=== PATIENT | male | born 1955 | race African-American/Black ===

== ENCOUNTER 2021-11-20 19:36 | Inpatient (IN) | payer MEDICARE, OTHER ==
[2021-11-20 20:55] LABS: #Eosinphils 0.2 10x3/uL (0.0-0.5); #Monocytes 0.5 10x3/uL (0.0-1.1); #Neutrophils 3.7 10x3/uL (1.5-8.4); %Basophils 0.4 % (0.0-2.0); %Eosinophils 2.9 % (0.0-6.0); %Monocytes 8.8 % (0.0-10.0); %Neutrophils 67.3 % (40.0-75.0); Hemoglobin 7.5 g/dL (13.5-17.5); Mean Corpuscular HGB CONC 33.9 g/dL (32.0-36.0); Mean Corpuscular Hemoglobin 32.9 pg (27.0-33.0); Mean Corpuscular Volume 96.9 fl (81.2-95.1); Platelet Count 102 10x3/uL (150-450); RBC Distribution Width 15.3 % (11.5-14.5); Red Blood Cell (RBC) Count 2.28 10x6/uL (4.32-5.72); White Blood Cell (WBC) Count 5.5 10x3/uL (3.5-10.5)
[2021-11-20 21:04] LABS: ALT (SGPT) 288 U/L (8-55); AST (SGOT) 44 U/L (5-34); Albumin 3.4 g/dL (3.4-4.8); Alkaline Phosphatase 61 U/L (40-110); Anion Gap 17 mmol/L (10-20); BUN (Urea Nitrogen) 112 mg/dL (8.4-25.7); Bilirubin, Total 0.5 mg/dL (0.2-1.2); Calc. Creatinine Clearance 0 mL/min (70-130); Calcium 9.5 mg/dL (7.8-10.44); Carbon Dioxide 21 mmol/L (23-31); Chloride 103 mmol/L (98-107); Globulin 2.4 g/dL (2.4-3.5); Glucose 153 mg/dL (80-115); Potassium 5.1 mmol/L (3.5-5.1); Protein, Total 5.8 g/dL (5.8-8.1); Sodium 136 mmol/L (136-145)
[2021-11-21 04:42] LABS: #Eosinphils 0.2 10x3/uL (0.0-0.5); #Monocytes 0.5 10x3/uL (0.0-1.1); %Basophils 0.3 % (0.0-2.0); %Eosinophils 3.1 % (0.0-6.0); %Lymphocytes 17.6 % (18.0-47.0); %Monocytes 8.4 % (0.0-10.0); %Neutrophils 70.3 % (40.0-75.0); Hemoglobin 7.3 g/dL (13.5-17.5); Mean Corpuscular HGB CONC 33.2 g/dL (32.0-36.0); Mean Corpuscular Hemoglobin 32.3 pg (27.0-33.0); Mean Corpuscular Volume 97.3 fl (81.2-95.1); RBC Distribution Width 14.9 % (11.5-14.5); Red Blood Cell (RBC) Count 2.26 10x6/uL (4.32-5.72); White Blood Cell (WBC) Count 5.7 10x3/uL (3.5-10.5)
[2021-11-21 04:43] LABS: Platelet Count 94 10x3/uL (150-450)
[2021-11-21 04:59] LABS: Anion Gap 17 mmol/L (10-20); BUN (Urea Nitrogen) 109 mg/dL (8.4-25.7); Calc. Creatinine Clearance 0 mL/min (70-130); Calcium 9.2 mg/dL (7.8-10.44); Carbon Dioxide 20 mmol/L (23-31); Chloride 107 mmol/L (98-107); Glucose 139 mg/dL (80-115); Magnesium 2.2 mg/dL (1.6-2.6); Phosphorus 3.4 mg/dL (2.3-4.7); Potassium 4.9 mmol/L (3.5-5.1); Sodium 139 mmol/L (136-145)
[2021-11-21] MEDS: Sodium Chloride 0.9% 1,000 ML IV SCH ×3 (07:49→13:16)
[2021-11-21] MEDS ORDERED: hydrALAZINE 25 MG TAB ONE (08:04)
[2021-11-21] MEDS ORDERED: Amlodipine 5 MG TAB ONE (08:04)
[2021-11-21] MEDS ORDERED: Heparin 5,000 UNITS/ML VIAL ONE (08:04)
[2021-11-21] MEDS: Heparin 5,000 UNITS/ML VIAL SC SCH ×3 (08:20→20:37)
[2021-11-21] MEDS: Citalopram 20 MG TAB PO SCH (08:20)
[2021-11-21] MEDS: Amlodipine 10 MG TAB PO SCH (08:20)
[2021-11-21] MEDS: Ferrous Sulfate 325 MG TAB PO SCH (08:20)
[2021-11-21] MEDS: Polyethylene Glycol 3350 17 GM Packet PO SCH (08:21)
[2021-11-21] MEDS: hydrALAZINE 25 MG TAB PO SCH ×3 (08:21→20:36)
[2021-11-21] MEDS: Multivit, Therapeutic 1 TAB PO SCH (08:21)
[2021-11-21] MEDS: Sodium Bicarbonate Tab 325 MG TAB PO SCH ×3 (08:22→20:36)
[2021-11-21] MEDS ORDERED: NIFEdipine XL 60 MG TAB PO SCH (09:00)
[2021-11-21] MEDS ORDERED: Atenolol 50 MG TAB PO SCH (09:00)
[2021-11-21] MEDS: Valproate Sodium 250 mg/5 ml UD Cup PO SCH ×2 (13:16→20:37)
[2021-11-22 00:17] LABS: SARS-CoV-2 PCR by NAA Not Detected (NotDetected)
[2021-11-22] MEDS: Sodium Chloride 0.9% 1,000 ML IV SCH ×2 (01:16→13:30)
[2021-11-22] MEDS ORDERED: Atenolol 50 MG TAB PO SCH (05:45)
[2021-11-22] MEDS ORDERED: hydrALAZINE 25 MG TAB PO SCH (05:45)
[2021-11-22] MEDS ORDERED: NIFEdipine XL 60 MG TAB PO SCH (05:45)
[2021-11-22] MEDS: Sodium Bicarbonate Tab 325 MG TAB PO SCH ×3 (09:07→21:27)
[2021-11-22] MEDS: Citalopram 20 MG TAB PO SCH (09:07)
[2021-11-22] MEDS: Amlodipine 10 MG TAB PO SCH (09:10)
[2021-11-22] MEDS: Multivit, Therapeutic 1 TAB PO SCH (09:10)
[2021-11-22] MEDS: Ferrous Sulfate 325 MG TAB PO SCH (09:11)
[2021-11-22] MEDS: Valproate Sodium 250 mg/5 ml UD Cup PO SCH ×2 (09:12→21:26)
[2021-11-22] MEDS: Polyethylene Glycol 3350 17 GM Packet PO SCH ×2 (09:12→13:30)
[2021-11-22] MEDS: Heparin 5,000 UNITS/ML VIAL SC SCH ×3 (09:12→21:27)
[2021-11-22 10:27] LABS: Anion Gap 15 mmol/L (10-20); BUN (Urea Nitrogen) 86 mg/dL (8.4-25.7); Calc. Creatinine Clearance 16 mL/min (70-130); Calcium 9.4 mg/dL (7.8-10.44); Carbon Dioxide 19 mmol/L (23-31); Chloride 110 mmol/L (98-107); Glucose 105 mg/dL (80-115); Potassium 4.6 mmol/L (3.5-5.1); Sodium 139 mmol/L (136-145)
[2021-11-22 10:53] LABS: #Monocytes 0.2 10x3/uL (0.0-1.1); %Basophils 0.2 % (0.0-2.0); %Lymphocytes 18.7 % (18.0-47.0); %Monocytes 4.7 % (0.0-10.0); %Neutrophils 74.9 % (40.0-75.0); Hemoglobin 7.8 g/dL (13.5-17.5); Mean Corpuscular HGB CONC 32.5 g/dL (32.0-36.0); Mean Corpuscular Hemoglobin 31.5 pg (27.0-33.0); Mean Corpuscular Volume 96.8 fl (81.2-95.1); Mean Platelet Volume 10.9 fl (7.4-10.4); Platelet Count 95 10x3/uL (150-450); RBC Distribution Width 14.9 % (11.5-14.5); Red Blood Cell (RBC) Count 2.48 10x6/uL (4.32-5.72); White Blood Cell (WBC) Count 4.1 10x3/uL (3.5-10.5)
[2021-11-22] MEDS: hydrALAZINE 25 MG TAB PO SCH ×2 (15:15→21:27)
[2021-11-22] MEDS ORDERED: Valproate Sodium 250 mg/5 ml UD Cup ONE (21:22)
[2021-11-23] MEDS ORDERED: hydrALAZINE 20 MG/ML VIAL SLOW IVP SCH (01:45)
[2021-11-23] MEDS: Sodium Chloride 0.9% 1,000 ML IV SCH ×2 (01:50→16:59)
[2021-11-23] MEDS ORDERED: cloNIDine 0.3mg/24 Hour PATCH TD SCH (02:00)
[2021-11-23 05:20] LABS: Anion Gap 15 mmol/L (10-20); BUN (Urea Nitrogen) 77 mg/dL (8.4-25.7); Calc. Creatinine Clearance 17 mL/min (70-130); Calcium 9.4 mg/dL (7.8-10.44); Carbon Dioxide 20 mmol/L (23-31); Chloride 112 mmol/L (98-107); Glucose 100 mg/dL (80-115); Potassium 5.1 mmol/L (3.5-5.1); Sodium 142 mmol/L (136-145)
[2021-11-23] MEDS: Amlodipine 10 MG TAB PO SCH (05:22)
[2021-11-23 05:24] LABS: #Eosinphils 0.2 10x3/uL (0.0-0.5); #Monocytes 0.4 10x3/uL (0.0-1.1); #Neutrophils 3.4 10x3/uL (1.5-8.4); %Basophils 0.4 % (0.0-2.0); %Lymphocytes 23.2 % (18.0-47.0); %Monocytes 8.2 % (0.0-10.0); %Neutrophils 64.8 % (40.0-75.0); Hemoglobin 7.9 g/dL (13.5-17.5); Mean Corpuscular HGB CONC 31.9 g/dL (32.0-36.0); Mean Corpuscular Hemoglobin 31.6 pg (27.0-33.0); Mean Corpuscular Volume 99.2 fl (81.2-95.1); Mean Platelet Volume 10.8 fl (7.4-10.4); Platelet Count 113 10x3/uL (150-450); RBC Distribution Width 14.9 % (11.5-14.5); White Blood Cell (WBC) Count 5.3 10x3/uL (3.5-10.5)
[2021-11-23] MEDS ORDERED: Atenolol 50 MG TAB PO SCH (09:00)
[2021-11-23] MEDS ORDERED: NIFEdipine XL 60 MG TAB PO SCH (09:00)
[2021-11-23] MEDS: hydrALAZINE 25 MG TAB PO SCH ×2 (10:24→16:55)
[2021-11-23] MEDS: Valproate Sodium 250 mg/5 ml UD Cup PO SCH (10:32)
[2021-11-23] MEDS: Ferrous Sulfate 325 MG TAB PO SCH (10:33)
[2021-11-23] MEDS: Heparin 5,000 UNITS/ML VIAL SC SCH ×2 (10:40→16:56)
[2021-11-23] MEDS: Multivit, Therapeutic 1 TAB PO SCH (10:40)
[2021-11-23] MEDS: Sodium Bicarbonate Tab 325 MG TAB PO SCH ×2 (10:40→16:55)
[2021-11-23] MEDS: Polyethylene Glycol 3350 17 GM Packet PO SCH (10:48)
[2021-11-23] MEDS: Citalopram 20 MG TAB PO SCH (10:48)
[2021-11-23 15:58] VITALS: BP 143/80; TEMP 99
[2021-11-24] MEDS ORDERED: cloNIDine 0.3mg/24 Hour PATCH TD SCH (09:00)
== END 2021-11-23 18:30 | DRG 683 ==
LOC: CSHERS 19:36 → INTOOBSV 22:52 → CSHERHOLD 22:52 → UNDOADMIN 11-21 03:50 → CSHERHOLD 11-21 03:50 → CSHTELE 11-21 11:42 → OBSVTOIN 11-22 08:59
PROVIDERS: ADMIT Family Medicine; ATTEND Physician Assistant
DX: N17.9 Acute kidney failure, unspecified (principal); E87.2 Acidosis; I12.0 Hypertensive chronic kidney disease with stage 5 chronic kidney disease or end stage renal disease; N18.5 Chronic kidney disease, stage 5; F01.50 Vascular dementia, unspecified severity, without behavioral disturbance, psychotic disturbance, mood disturbance, and anxiety; G40.909 Epilepsy, unspecified, not intractable, without status epilepticus; E11.22 Type 2 diabetes mellitus with diabetic chronic kidney disease; E78.5 Hyperlipidemia, unspecified; N40.0 Benign prostatic hyperplasia without lower urinary tract symptoms; F31.9 Bipolar disorder, unspecified; D63.1 Anemia in chronic kidney disease; E87.5 Hyperkalemia; Z20.822 Contact with and (suspected) exposure to COVID-19; Z88.8 Allergy status to other drugs, medicaments and biological substances; Z86.73 Personal history of transient ischemic attack (TIA), and cerebral infarction without residual deficits; Z79.899 Other long term (current) drug therapy
CPT/HCPCS: 36415; 76770; 80048; 80053; 83735; 84100; 85025; 86850; 86900; 86901; J0360; J1644; J7050; U0003; U0005

== ENCOUNTER 2022-03-24 23:05 | Emergency (ER) | payer MEDICARE, OTHER ==
[2022-03-24 23:37] LABS: #Eosinphils 0.1 10x3/uL (0.0-0.5); #Monocytes 0.3 10x3/uL (0.0-1.1); #Neutrophils 2.6 10x3/uL (1.5-8.4); %Basophils 0.5 % (0.0-2.0); %Eosinophils 2.4 % (0.0-6.0); %Lymphocytes 20.4 % (18.0-47.0); %Monocytes 8.4 % (0.0-10.0); Hemoglobin 9.2 g/dL (13.5-17.5); Mean Corpuscular HGB CONC 30.7 g/dL (32.0-36.0); Mean Corpuscular Hemoglobin 29.1 pg (27.0-33.0); Mean Corpuscular Volume 94.9 fl (81.2-95.1); Mean Platelet Volume 12.8 fl (7.4-10.4); Platelet Count 139 10x3/uL (150-450); RBC Distribution Width 16.2 % (11.5-14.5); Red Blood Cell (RBC) Count 3.16 10x6/uL (4.32-5.72); White Blood Cell (WBC) Count 3.8 10x3/uL (3.5-10.5)
[2022-03-24 23:56] LABS: ALT (SGPT) 12 U/L (8-55); AST (SGOT) 18 U/L (5-34); Alkaline Phosphatase 64 U/L (40-110); Anion Gap 17 mmol/L (10-20); BUN (Urea Nitrogen) 96 mg/dL (8.4-25.7); CK (CPK) 57 U/L (30-200); Calc. Creatinine Clearance 0 mL/min (70-130); Calcium 9.2 mg/dL (7.8-10.44); Carbon Dioxide 21 mmol/L (23-31); Chloride 106 mmol/L (98-107); Estimated GFR 12; Globulin 2.8 g/dL (2.4-3.5); Glucose 123 mg/dL (80-115); Potassium 5.1 mmol/L (3.5-5.1); Protein, Total 5.8 g/dL (5.8-8.1); Sodium 139 mmol/L (136-145)
[2022-03-25 00:19] LABS: CKMB 6.6 ng/mL (0-6.6)
[2022-03-25 00:41] LABS: Bilirubin Neg (Negative); Blood, Urine 150 (Negative); Glucose, Urine (Dipstick) Normal (Negative); Ketone, Urine Negative (Negative); Leukocyte 500 (Negative); Nitrite Negative (Negative); Protein, Urine (Dipstick) 100 mg/dl (Neg-Trace); Urobilinogen Normal mg/dL (Less than 2)
[2022-03-25 00:54] LABS: Bacteria/HPF 1+ HPF (None Seen); RBC/HPF 0-3 HPF (0-3); Squamous Epithelial 0-3 HPF (0-3)
== END 2022-03-25 03:15 ==
LOC: CSHERS 23:05
DX: R56.9 Unspecified convulsions (principal)
CPT/HCPCS: 51701; 70450; 80053; 81003; 81015; 82550; 82553; 84146; 84484; 85025; 87077; 87086; 87186; 93005

== ENCOUNTER 2022-03-25 14:01 | Inpatient (IN) | payer MEDICARE, MEDICAID ==
[2022-03-25] MEDS ORDERED: Furosemide 40 MG/4 ML VIAL ONE ×2 (14:34→16:48)
[2022-03-25 14:45] LABS: #Monocytes 0.2 10x3/uL (0.0-1.1); #Neutrophils 8.6 10x3/uL (1.5-8.4); %Basophils 0.1 % (0.0-2.0); %Eosinophils 0.4 % (0.0-6.0); %Lymphocytes 1.8 % (18.0-47.0); %Monocytes 1.9 % (0.0-10.0); %Neutrophils 95.5 % (40.0-75.0); Hemoglobin 8.4 g/dL (13.5-17.5); Mean Corpuscular HGB CONC 31.3 g/dL (32.0-36.0); Mean Corpuscular Hemoglobin 30.2 pg (27.0-33.0); Mean Corpuscular Volume 96.4 fl (81.2-95.1); Mean Platelet Volume 12.5 fl (7.4-10.4); Platelet Count 124 10x3/uL (150-450); RBC Distribution Width 16.2 % (11.5-14.5); Red Blood Cell (RBC) Count 2.78 10x6/uL (4.32-5.72); White Blood Cell (WBC) Count 9.1 10x3/uL (3.5-10.5)
[2022-03-25 15:03] LABS: ALT (SGPT) 10 U/L (8-55); AST (SGOT) 14 U/L (5-34); Albumin 3.1 g/dL (3.4-4.8); Alkaline Phosphatase 73 U/L (40-110); Anion Gap 18 mmol/L (10-20); BUN (Urea Nitrogen) 96 mg/dL (8.4-25.7); Bilirubin, Total 0.6 mg/dL (0.2-1.2); Calc. Creatinine Clearance 0 mL/min (70-130); Calcium 8.9 mg/dL (7.8-10.44); Carbon Dioxide 22 mmol/L (23-31); Chloride 104 mmol/L (98-107); Estimated GFR 12; Globulin 2.6 g/dL (2.4-3.5); Glucose 135 mg/dL (80-115); Lipase 28 U/L (8-78); Magnesium 2.1 mg/dL (1.6-2.6); Potassium 4.7 mmol/L (3.5-5.1); Protein, Total 5.7 g/dL (5.8-8.1); Sodium 139 mmol/L (136-145)
[2022-03-25] MEDS ORDERED: Aspirin Chewable 81 MG TAB ONE (15:28)
[2022-03-25 15:31] LABS: CKMB 6.9 ng/mL (0-6.6)
[2022-03-25 16:46] LABS: Phosphorus 4.7 mg/dL (2.3-4.7)
[2022-03-25 17:39] VITALS: BMI 27.3
[2022-03-25 18:05] LABS: SARS-CoV-2 NAA Rapid Test Not Detected (NotDetected)
[2022-03-25 18:52] LABS: Troponin I 0.053 ng/mL (< 0.028)
[2022-03-25] MEDS ORDERED: traZODone HCl 50 MG TAB PO SCH (20:45)
[2022-03-25] MEDS ORDERED: Famotidine 20 MG TAB PO SCH (21:00)
[2022-03-25] MEDS: hydrALAZINE 25 MG TAB PO SCH (21:19)
[2022-03-25] MEDS: Valproate Sodium 250 mg/5 ml UD Cup PO SCH (21:19)
[2022-03-25] MEDS: Atorvastatin Calcium 10 MG TAB PO SCH (21:21)
[2022-03-25] MEDS: Sodium Bicarbonate Tab 325 MG TAB PO SCH (21:22)
[2022-03-25 21:48] LABS: Bilirubin Neg (Negative); Blood, Urine Negative (Negative); Clarity Clear (Clear); Glucose, Urine (Dipstick) Normal (Negative); Ketone, Urine Negative (Negative); Leukocyte 500 (Negative); Nitrite Negative (Negative); Protein, Urine (Dipstick) 30 mg/dl (Neg-Trace); Specific Gravity, Urine 1.005 (1.005-1.030); Urobilinogen Normal mg/dL (Less than 2)
[2022-03-25 21:54] LABS: Troponin I 0.056 ng/mL (< 0.028)
[2022-03-25 22:06] LABS: Bacteria/HPF 1+ HPF (None Seen); RBC/HPF 0-3 HPF (0-3)
[2022-03-26 02:16] LABS: CKMB 4.9 ng/mL (0-6.6)
[2022-03-26 04:23] LABS: #Monocytes 0.6 10x3/uL (0.0-1.1); #Neutrophils 7.6 10x3/uL (1.5-8.4); %Basophils 0.2 % (0.0-2.0); %Eosinophils 0.1 % (0.0-6.0); %Lymphocytes 7.7 % (18.0-47.0); %Monocytes 6.3 % (0.0-10.0); %Neutrophils 85.5 % (40.0-75.0); Hemoglobin 7.7 g/dL (13.5-17.5); Mean Corpuscular HGB CONC 31.8 g/dL (32.0-36.0); Mean Corpuscular Hemoglobin 30.2 pg (27.0-33.0); Mean Corpuscular Volume 94.9 fl (81.2-95.1); Platelet Count 106 10x3/uL (150-450); RBC Distribution Width 16.3 % (11.5-14.5); Red Blood Cell (RBC) Count 2.55 10x6/uL (4.32-5.72); White Blood Cell (WBC) Count 8.9 10x3/uL (3.5-10.5)
[2022-03-26 04:43] LABS: ALT (SGPT) 27 U/L (8-55); AST (SGOT) 30 U/L (5-34); Albumin 2.8 g/dL (3.4-4.8); Alkaline Phosphatase 89 U/L (40-110); Anion Gap 15 mmol/L (10-20); BUN (Urea Nitrogen) 96 mg/dL (8.4-25.7); Bilirubin, Total 0.7 mg/dL (0.2-1.2); Calc. Creatinine Clearance 16 mL/min (70-130); Calcium 8.8 mg/dL (7.8-10.44); Carbon Dioxide 23 mmol/L (23-31); Chloride 106 mmol/L (98-107); Estimated GFR 11; Globulin 2.3 g/dL (2.4-3.5); Glucose 120 mg/dL (80-115); Potassium 4.7 mmol/L (3.5-5.1); Protein, Total 5.1 g/dL (5.8-8.1); Sodium 139 mmol/L (136-145)
[2022-03-26] MEDS: Furosemide 40 MG/4 ML VIAL SLOW IVP SCH (07:29)
[2022-03-26 08:57] LABS: CKMB 4.6 ng/mL (0-6.6)
[2022-03-26] MEDS ORDERED: FLU VACC QS2022-23(65YR UP)/PF 240 MCG/0.7 ML SYRINGE IM ONE (09:00)
[2022-03-26] MEDS: cefTRIAXone\\ROCEPHIN 1 GM in Sodium Chloride 0.9% 100 ML IVPB SCH (10:34)
[2022-03-26] MEDS: hydrALAZINE 25 MG TAB PO SCH ×3 (10:42→21:55)
[2022-03-26] MEDS: Ferrous Sulfate 325 MG TAB PO SCH ×3 (10:42→21:55)
[2022-03-26] MEDS: Citalopram 20 MG TAB PO SCH (10:42)
[2022-03-26] MEDS ORDERED: Lidocaine 1% MPF 2 ML VIAL ONE (10:42)
[2022-03-26] MEDS ORDERED: Sodium Bicarbonate 2.5 MEQ/5 ML VIAL ONE (10:42)
[2022-03-26] MEDS: Valproate Sodium 250 mg/5 ml UD Cup PO SCH ×2 (10:42→21:55)
[2022-03-26] MEDS: Sodium Bicarbonate Tab 325 MG TAB PO SCH ×3 (10:43→21:56)
[2022-03-26] MEDS: Metoprolol Tartrate 50 MG TAB PO SCH ×2 (10:43→21:55)
[2022-03-26] MEDS: Amlodipine 10 MG TAB PO SCH (10:43)
[2022-03-26] MEDS: Aspirin Chewable 81 MG TAB PO SCH (10:43)
[2022-03-26] MEDS: Multivitamin W/ Minerals 1 TAB PO SCH (10:43)
[2022-03-26 11:55] LABS: Bilirubin Neg (Negative); Blood, Urine 150 (Negative); Glucose, Urine (Dipstick) Normal (Negative); Ketone, Urine Negative (Negative); Leukocyte 500 (Negative); Nitrite Negative (Negative); Protein, Urine (Dipstick) 30 mg/dl (Neg-Trace); Urobilinogen Normal mg/dL (Less than 2); pH, Urine 6.5 (5.0-9.0)
[2022-03-26 11:58] LABS: Clarity Slightly Cloudy (Clear)
[2022-03-26 12:08] LABS: Renal Epithelial 0-3 HPF (None Seen)
[2022-03-26 12:09] LABS: Bacteria/HPF Rare-Few HPF (None Seen); Squamous Epithelial 0-3 HPF (0-3)
[2022-03-26 12:11] LABS: Urine Culture Reflex Yes Yes
[2022-03-26 12:14] LABS: Legionella Urinary Ag Negative (Negative); Strep pneumo Urine Ag NEGATIVE (NEGATIVE)
[2022-03-26] MEDS: Bisacodyl 10 MG SUPP PR SCH (16:06)
[2022-03-26] MEDS: Famotidine 20 MG TAB PO SCH (21:55)
[2022-03-26] MEDS: Atorvastatin Calcium 10 MG TAB PO SCH (22:04)
[2022-03-27 04:08] LABS: #Eosinphils 0.1 10x3/uL (0.0-0.5); #Monocytes 0.4 10x3/uL (0.0-1.1); #Neutrophils 5.3 10x3/uL (1.5-8.4); %Basophils 0.3 % (0.0-2.0); %Eosinophils 1.1 % (0.0-6.0); %Lymphocytes 13.2 % (18.0-47.0); %Neutrophils 79.1 % (40.0-75.0); Hemoglobin 8.1 g/dL (13.5-17.5); Mean Corpuscular HGB CONC 31.6 g/dL (32.0-36.0); Mean Corpuscular Hemoglobin 29.8 pg (27.0-33.0); Mean Corpuscular Volume 94.1 fl (81.2-95.1); Platelet Count 118 10x3/uL (150-450); RBC Distribution Width 16.6 % (11.5-14.5); Red Blood Cell (RBC) Count 2.72 10x6/uL (4.32-5.72); White Blood Cell (WBC) Count 6.7 10x3/uL (3.5-10.5)
[2022-03-27 04:22] LABS: Anion Gap 16 mmol/L (10-20); BUN (Urea Nitrogen) 94 mg/dL (8.4-25.7); Calc. Creatinine Clearance 5 mL/min (70-130); Calcium 8.7 mg/dL (7.8-10.44); Carbon Dioxide 23 mmol/L (23-31); Chloride 105 mmol/L (98-107); Estimated GFR 11; Glucose 108 mg/dL (80-115); Potassium 4.7 mmol/L (3.5-5.1); Sodium 139 mmol/L (136-145)
[2022-03-27] MEDS: hydrALAZINE 25 MG TAB PO SCH ×3 (09:53→20:50)
[2022-03-27] MEDS: Aspirin Chewable 81 MG TAB PO SCH ×2 (09:53→12:51)
[2022-03-27] MEDS: Amlodipine 10 MG TAB PO SCH (09:53)
[2022-03-27] MEDS: Citalopram 20 MG TAB PO SCH (09:53)
[2022-03-27] MEDS: cefTRIAXone\\ROCEPHIN 1 GM in Sodium Chloride 0.9% 100 ML IVPB SCH (09:54)
[2022-03-27] MEDS: Sodium Bicarbonate Tab 325 MG TAB PO SCH ×3 (09:54→20:50)
[2022-03-27] MEDS: Bisacodyl 10 MG SUPP PR SCH (09:54)
[2022-03-27] MEDS: Metoprolol Tartrate 50 MG TAB PO SCH ×2 (09:54→20:51)
[2022-03-27] MEDS: Valproate Sodium 250 mg/5 ml UD Cup PO SCH ×2 (09:54→20:49)
[2022-03-27] MEDS: Multivitamin W/ Minerals 1 TAB PO SCH ×2 (09:55→12:49)
[2022-03-27] MEDS: Ferrous Sulfate 325 MG TAB PO SCH ×4 (09:55→20:50)
[2022-03-27] MEDS: Furosemide 40 MG/4 ML VIAL SLOW IVP SCH (15:47)
[2022-03-27] MEDS: Famotidine 20 MG TAB PO SCH (20:49)
[2022-03-27] MEDS: Atorvastatin Calcium 10 MG TAB PO SCH (20:52)
[2022-03-28] MEDS: Guaifenesin DM 100-10/5 ML UDCUP PO PRN ×2 (03:54→10:18)
[2022-03-28] MEDS ORDERED: Guaifenesin DM 100-10/5 ML UDCUP ONE (10:02)
[2022-03-28] MEDS: cefTRIAXone\\ROCEPHIN 1 GM in Sodium Chloride 0.9% 100 ML IVPB SCH (10:18)
[2022-03-28] MEDS: Valproate Sodium 250 mg/5 ml UD Cup PO SCH ×2 (10:18→21:00)
[2022-03-28] MEDS: Amlodipine 10 MG TAB PO SCH (10:19)
[2022-03-28] MEDS: Citalopram 20 MG TAB PO SCH (10:19)
[2022-03-28] MEDS: Sodium Bicarbonate Tab 325 MG TAB PO SCH ×3 (10:20→21:20)
[2022-03-28] MEDS: Multivitamin W/ Minerals 1 TAB PO SCH (10:20)
[2022-03-28] MEDS: hydrALAZINE 25 MG TAB PO SCH ×3 (10:20→21:18)
[2022-03-28] MEDS: Ferrous Sulfate 325 MG TAB PO SCH ×3 (10:20→21:19)
[2022-03-28] MEDS: Bisacodyl 10 MG SUPP PR SCH (10:21)
[2022-03-28] MEDS: Aspirin Chewable 81 MG TAB PO SCH (10:21)
[2022-03-28] MEDS: Metoprolol Tartrate 50 MG TAB PO SCH ×2 (10:22→21:21)
[2022-03-28] MEDS: Furosemide 40 MG/4 ML VIAL SLOW IVP SCH (15:06)
[2022-03-28] MEDS: Famotidine 20 MG TAB PO SCH (21:20)
[2022-03-28] MEDS: Atorvastatin Calcium 10 MG TAB PO SCH (21:20)
[2022-03-29 05:27] LABS: #Eosinphils 0.1 10x3/uL (0.0-0.5); #Monocytes 0.4 10x3/uL (0.0-1.1); #Neutrophils 3.4 10x3/uL (1.5-8.4); %Basophils 0.4 % (0.0-2.0); %Monocytes 8.5 % (0.0-10.0); %Neutrophils 68.1 % (40.0-75.0); Hemoglobin 12.3 g/dL (13.5-17.5); Mean Corpuscular HGB CONC 32.3 g/dL (32.0-36.0); Mean Corpuscular Hemoglobin 29.7 pg (27.0-33.0); Mean Platelet Volume 12.7 fl (7.4-10.4); Platelet Count 135 10x3/uL (150-450); RBC Distribution Width 15.9 % (11.5-14.5); Red Blood Cell (RBC) Count 4.14 10x6/uL (4.32-5.72)
[2022-03-29 05:38] LABS: Anion Gap 20 mmol/L (10-20); BUN (Urea Nitrogen) 85 mg/dL (8.4-25.7); Calc. Creatinine Clearance 0 mL/min (70-130); Calcium 8.4 mg/dL (7.8-10.44); Carbon Dioxide 20 mmol/L (23-31); Chloride 104 mmol/L (98-107); Estimated GFR 12; Glucose 103 mg/dL (80-115); Potassium 4.5 mmol/L (3.5-5.1); Sodium 139 mmol/L (136-145)
[2022-03-29] MEDS: Furosemide 40 MG/4 ML VIAL SLOW IVP SCH ×2 (06:35→15:20)
[2022-03-29] MEDS: cefTRIAXone\\ROCEPHIN 1 GM in Sodium Chloride 0.9% 100 ML IVPB SCH (09:55)
[2022-03-29] MEDS: hydrALAZINE 25 MG TAB PO SCH ×2 (09:55→15:25)
[2022-03-29] MEDS: Ferrous Sulfate 325 MG TAB PO SCH ×2 (09:56→15:25)
[2022-03-29] MEDS: Citalopram 20 MG TAB PO SCH (09:56)
[2022-03-29] MEDS: Valproate Sodium 250 mg/5 ml UD Cup PO SCH (09:56)
[2022-03-29] MEDS: Aspirin Chewable 81 MG TAB PO SCH (09:56)
[2022-03-29] MEDS: Amlodipine 10 MG TAB PO SCH (09:56)
[2022-03-29] MEDS: Sodium Bicarbonate Tab 325 MG TAB PO SCH ×2 (09:56→15:25)
[2022-03-29] MEDS: Multivitamin W/ Minerals 1 TAB PO SCH (09:56)
[2022-03-29] MEDS: Bisacodyl 10 MG SUPP PR SCH (09:57)
[2022-03-29] MEDS: Metoprolol Tartrate 50 MG TAB PO SCH (09:58)
[2022-03-29] MEDS ORDERED: hydrALAZINE 20 MG/ML VIAL SLOW IVP SCH (12:15)
[2022-03-29 15:22] VITALS: BP 146/70; TEMP 98.1
[2022-03-30] MEDS ORDERED: cloNIDine 0.3mg/24 Hour PATCH TD SCH (09:00)
== END 2022-03-29 15:51 | DRG 291 ==
LOC: CSHERS 14:01 → CSHTELE 17:28
PROVIDERS: ADMIT Internal Medicine; ATTEND Hospitalist
PROC: 0W993ZZ Drainage of Right Pleural Cavity, Percutaneous Approach (ICD-10-PCS; principal; 2022-03-26)
DX: I13.0 Hypertensive heart and chronic kidney disease with heart failure and stage 1 through stage 4 chronic kidney disease, or unspecified chronic kidney disease (principal); I50.43 Acute on chronic combined systolic (congestive) and diastolic (congestive) heart failure; J18.9 Pneumonia, unspecified organism; J96.01 Acute respiratory failure with hypoxia; J90 Pleural effusion, not elsewhere classified; I69.351 Hemiplegia and hemiparesis following cerebral infarction affecting right dominant side; N39.0 Urinary tract infection, site not specified; N18.5 Chronic kidney disease, stage 5; E11.22 Type 2 diabetes mellitus with diabetic chronic kidney disease; D63.1 Anemia in chronic kidney disease; E78.5 Hyperlipidemia, unspecified; F03.90 Unspecified dementia, unspecified severity, without behavioral disturbance, psychotic disturbance, mood disturbance, and anxiety; F31.9 Bipolar disorder, unspecified; Z20.822 Contact with and (suspected) exposure to COVID-19; Z88.8 Allergy status to other drugs, medicaments and biological substances; Z87.891 Personal history of nicotine dependence; Z79.899 Other long term (current) drug therapy
CPT/HCPCS: 32555; 36415; 51701; 71045; 71250; 80048; 80053; 81001; 81003; 81015; 82553; 83690; 83735; 83880; 84100; 84145; 84146; 84484; 85025; 86140; 87040; 87077; 87086; 87186; 87449; 87899; 93005; 93306; 94760; 96374; 96376; 97139; J0360; J0696; J1940; J3490

== ENCOUNTER 2022-04-03 09:50 | Inpatient (IN) | payer MEDICARE, OTHER ==
[2022-04-03 11:16] LABS: #Monocytes 0.5 10x3/uL (0.0-1.1); #Neutrophils 5.4 10x3/uL (1.5-8.4); %Basophils 0.4 % (0.0-2.0); %Eosinophils 0.1 % (0.0-6.0); %Lymphocytes 12.1 % (18.0-47.0); %Monocytes 6.7 % (0.0-10.0); %Neutrophils 77.1 % (40.0-75.0); Hemoglobin 8.6 g/dL (13.5-17.5); Mean Corpuscular HGB CONC 30.5 g/dL (32.0-36.0); Mean Corpuscular Hemoglobin 29.8 pg (27.0-33.0); Mean Corpuscular Volume 97.6 fl (81.2-95.1); Mean Platelet Volume 11.7 fl (7.4-10.4); Platelet Count 155 10x3/uL (150-450); RBC Distribution Width 16.8 % (11.5-14.5); Red Blood Cell (RBC) Count 2.89 10x6/uL (4.32-5.72)
[2022-04-03 11:31] LABS: ALT (SGPT) 12 U/L (8-55); AST (SGOT) 15 U/L (5-34); Albumin 3.5 g/dL (3.4-4.8); Alkaline Phosphatase 58 U/L (40-110); Anion Gap 16 mmol/L (10-20); BUN (Urea Nitrogen) 69 mg/dL (8.4-25.7); Bilirubin, Total 0.5 mg/dL (0.2-1.2); Calc. Creatinine Clearance 0 mL/min (70-130); Calcium 9.8 mg/dL (7.8-10.44); Carbon Dioxide 24 mmol/L (23-31); Chloride 108 mmol/L (98-107); Estimated GFR 11; Glucose 122 mg/dL (80-115); Protein, Total 6.5 g/dL (5.8-8.1); Sodium 144 mmol/L (136-145)
[2022-04-03 12:41] LABS: CKMB 4.2 ng/mL (0-6.6)
[2022-04-03] MEDS ORDERED: Nitroglycerin 0.4 MG TAB 1 EACH ONE (14:14)
[2022-04-03] MEDS ORDERED: Aspirin Chewable 81 MG TAB ONE (14:14)
[2022-04-03] MEDS ORDERED: Furosemide 100 MG/10 ML VIAL ONE (14:14)
[2022-04-03 16:06] LABS: Troponin I 0.053 ng/mL (< 0.028)
[2022-04-03 16:49] LABS: ALV-art Gradient 112.875 mmHg (0-20); Actual Bicarbonate (HCO3a) 25.9 mEq/L (22-28); Base Excess (BEa) 1.5 mEq/L (-2.0 to +3.0); CO2 Tension 40.1 mmHg (35.0-45.0); Calcium, Ionized (arterial) 1.23 mmol/L (1.12-1.30); Carboxyhemoglobin (COHb) 0.3 gm% (0.0-3.0); Hemoglobin (Hb) 9.5 g/dL (14.0-18.0); O2 Tension (PaO2), arterial 50.9 mmHg (> 80.0); Potassium - ABG Lab 3.7 mmol/L (3.70-5.30); Puncture Site RRA; pH, Arterial 7.43 (7.35-7.45)
[2022-04-03] MEDS ORDERED: HYDROcodone/Acetaminophen 5/325 mg Tablet PO PRN (16:59)
[2022-04-03] MEDS ORDERED: Ondansetron PF 4 MG/2 ML Vial IVP PRN (16:59)
[2022-04-03] MEDS ORDERED: Acetaminophen 325 MG TAB PO PRN (16:59)
[2022-04-03] MEDS ORDERED: Furosemide 100 MG/10 ML VIAL SLOW IVP SCH (20:00)
[2022-04-03] MEDS ORDERED: Nitroglycerin 50 MG/250 ML BOT 250 ML ONE (21:14)
[2022-04-03] MEDS ORDERED: Furosemide 40 MG/4 ML VIAL ONE (21:15)
[2022-04-03] MEDS: Nitroglycerin 50 MG/250 ML BOT 250 ML IVPB SCH (21:43)
[2022-04-03 22:15] LABS: Troponin I 0.056 ng/mL (< 0.028)
[2022-04-03 22:29] LABS: Hep B Surf Ag Non-Reactive S/CO (NonReactive)
[2022-04-04 01:55] LABS: HBSAB Concentration Less than 8.00 mIU/mL; Hep B Core Total Ab Non-Reactive (NonReactive); Hep B Core Total Index 0.06 S/CO (0-0.79); Hep B Surf AB Non-Reactive (NonReactive); Hep C IgG Ab Non-Reactive (NonReactive); Hep C Index 0.16 S/CO (0-0.79)
[2022-04-04 02:29] LABS: SARS-CoV-2 NAA Rapid Test Not Detected (NotDetected)
[2022-04-04] MEDS ORDERED: Dextrose 50% Abboject 50 ML SYRINGE IVP PRN (03:45)
[2022-04-04] MEDS ORDERED: Dextrose 5% in Water 1,000 ML IV PRN (03:45)
[2022-04-04] MEDS ORDERED: HumaLOG 300 UNITS/3 ML VIAL SC PRN (03:45)
[2022-04-04 04:14] LABS: #Monocytes 0.5 10x3/uL (0.0-1.1); #Neutrophils 4.8 10x3/uL (1.5-8.4); %Basophils 0.5 % (0.0-2.0); %Eosinophils 0.2 % (0.0-6.0); %Lymphocytes 14.6 % (18.0-47.0); %Monocytes 8.1 % (0.0-10.0); %Neutrophils 74.6 % (40.0-75.0); Hemoglobin 7.6 g/dL (13.5-17.5); Mean Corpuscular HGB CONC 31.5 g/dL (32.0-36.0); Mean Corpuscular Volume 95.3 fl (81.2-95.1); Mean Platelet Volume 11.6 fl (7.4-10.4); Platelet Count 137 10x3/uL (150-450); RBC Distribution Width 16.9 % (11.5-14.5); Red Blood Cell (RBC) Count 2.53 10x6/uL (4.32-5.72); White Blood Cell (WBC) Count 6.4 10x3/uL (3.5-10.5)
[2022-04-04 04:16] LABS: Anion Gap 18 mmol/L (10-20); BUN (Urea Nitrogen) 68 mg/dL (8.4-25.7); Calc. Creatinine Clearance 15 mL/min (70-130); Calcium 9.2 mg/dL (7.8-10.44); Carbon Dioxide 22 mmol/L (23-31); Chloride 109 mmol/L (98-107); Estimated GFR 12; Glucose 120 mg/dL (80-115); Potassium 3.9 mmol/L (3.5-5.1); Sodium 145 mmol/L (136-145)
[2022-04-04] MEDS: Nitroglycerin 50 MG/250 ML BOT 250 ML IVPB SCH (04:52)
[2022-04-04] MEDS: Furosemide 100 MG/10 ML VIAL SLOW IVP SCH ×2 (05:21→13:52)
[2022-04-04] MEDS ORDERED: Furosemide 40 MG TAB PO SCH (09:00)
[2022-04-04] MEDS: Labetalol HCl 100 MG/20 ML VIAL SLOW IVP PRN ×3 (09:39→17:54)
[2022-04-04] MEDS ORDERED: Epoetin (ESRD) 10,000 UNITS/ML VIAL SC SCH (10:00)
[2022-04-04] MEDS: hydrALAZINE 20 MG/ML VIAL SLOW IVP PRN ×3 (10:21→19:00)
[2022-04-04] MEDS ORDERED: cloNIDine 0.1mg/24 Hour PATCH TD SCH (11:30)
[2022-04-04] MEDS ORDERED: Amlodipine 10 MG TAB PO SCH (16:45)
[2022-04-04] MEDS ORDERED: Metoprolol Tartrate 50 MG TAB PO SCH ×2 (16:45→21:00)
[2022-04-04] MEDS: hydrALAZINE 25 MG TAB PO SCH (20:17)
[2022-04-04] MEDS: Atorvastatin Calcium 10 MG TAB PO SCH (20:18)
[2022-04-05] MEDS: Labetalol HCl 100 MG/20 ML VIAL SLOW IVP PRN (01:16)
[2022-04-05] MEDS: hydrALAZINE 20 MG/ML VIAL SLOW IVP PRN ×2 (02:32→07:00)
[2022-04-05 04:42] VITALS: BMI 25.1
[2022-04-05 04:42] LABS: #Eosinphils 0.1 10x3/uL (0.0-0.5); #Monocytes 0.6 10x3/uL (0.0-1.1); #Neutrophils 5.4 10x3/uL (1.5-8.4); %Basophils 0.3 % (0.0-2.0); %Eosinophils 0.8 % (0.0-6.0); %Lymphocytes 15.1 % (18.0-47.0); %Monocytes 8.6 % (0.0-10.0); %Neutrophils 72.9 % (40.0-75.0); Hemoglobin 7.7 g/dL (13.5-17.5); Mean Corpuscular HGB CONC 31.4 g/dL (32.0-36.0); Mean Corpuscular Volume 95.3 fl (81.2-95.1); Mean Platelet Volume 11.6 fl (7.4-10.4); Platelet Count 127 10x3/uL (150-450); RBC Distribution Width 17.3 % (11.5-14.5); Red Blood Cell (RBC) Count 2.57 10x6/uL (4.32-5.72); White Blood Cell (WBC) Count 7.4 10x3/uL (3.5-10.5)
[2022-04-05 04:43] LABS: Anion Gap 18 mmol/L (10-20); BUN (Urea Nitrogen) 62 mg/dL (8.4-25.7); Calc. Creatinine Clearance 15 mL/min (70-130); Calcium 9.4 mg/dL (7.8-10.44); Carbon Dioxide 22 mmol/L (23-31); Chloride 107 mmol/L (98-107); Estimated GFR 12; Glucose 108 mg/dL (80-115); Potassium 3.8 mmol/L (3.5-5.1); Sodium 143 mmol/L (136-145)
[2022-04-05] MEDS: Furosemide 100 MG/10 ML VIAL SLOW IVP SCH (05:57)
[2022-04-05] MEDS: Amlodipine 10 MG TAB PO SCH (09:14)
[2022-04-05] MEDS: hydrALAZINE 25 MG TAB PO SCH ×3 (09:14→21:29)
[2022-04-05] MEDS: Metoprolol Tartrate 50 MG TAB PO SCH ×2 (09:15→21:29)
[2022-04-05] MEDS: Furosemide 40 MG/4 ML VIAL SLOW IVP SCH (13:51)
[2022-04-05] MEDS: Atorvastatin Calcium 10 MG TAB PO SCH (21:43)
[2022-04-06 05:23] LABS: Anion Gap 16 mmol/L (10-20); BUN (Urea Nitrogen) 63 mg/dL (8.4-25.7); Calc. Creatinine Clearance 15 mL/min (70-130); Calcium 9.7 mg/dL (7.8-10.44); Carbon Dioxide 25 mmol/L (23-31); Chloride 107 mmol/L (98-107); Estimated GFR 12; Glucose 120 mg/dL (80-115); Potassium 3.7 mmol/L (3.5-5.1); Sodium 144 mmol/L (136-145)
[2022-04-06] MEDS: hydrALAZINE 20 MG/ML VIAL SLOW IVP PRN (05:27)
[2022-04-06] MEDS: Furosemide 40 MG/4 ML VIAL SLOW IVP SCH (05:27)
[2022-04-06 05:30] LABS: #Monocytes 0.7 10x3/uL (0.0-1.1); #Neutrophils 5.8 10x3/uL (1.5-8.4); %Basophils 0.3 % (0.0-2.0); %Eosinophils 0.5 % (0.0-6.0); %Lymphocytes 15.7 % (18.0-47.0); %Monocytes 8.8 % (0.0-10.0); %Neutrophils 73.2 % (40.0-75.0); Hemoglobin 7.8 g/dL (13.5-17.5); Mean Corpuscular HGB CONC 30.8 g/dL (32.0-36.0); Mean Corpuscular Hemoglobin 30.4 pg (27.0-33.0); Mean Corpuscular Volume 98.4 fl (81.2-95.1); Mean Platelet Volume 11.1 fl (7.4-10.4); Platelet Count 150 10x3/uL (150-450); RBC Distribution Width 17.5 % (11.5-14.5); Red Blood Cell (RBC) Count 2.57 10x6/uL (4.32-5.72); White Blood Cell (WBC) Count 7.9 10x3/uL (3.5-10.5)
[2022-04-06] MEDS ORDERED: Furosemide 40 MG TAB PO SCH ×2 (09:00→09:30)
[2022-04-06] MEDS: hydrALAZINE 25 MG TAB PO SCH ×3 (09:04→22:30)
[2022-04-06] MEDS: Amlodipine 10 MG TAB PO SCH (09:05)
[2022-04-06] MEDS: Metoprolol Tartrate 50 MG TAB PO SCH ×2 (09:05→22:30)
[2022-04-06] MEDS: Furosemide 40 MG TAB PO SCH (16:38)
[2022-04-06] MEDS: Atorvastatin Calcium 10 MG TAB PO SCH (22:30)
[2022-04-07 06:17] LABS: #Monocytes 0.7 10x3/uL (0.0-1.1); #Neutrophils 7.1 10x3/uL (1.5-8.4); %Basophils 0.3 % (0.0-2.0); %Eosinophils 0.4 % (0.0-6.0); %Lymphocytes 11.7 % (18.0-47.0); %Monocytes 7.5 % (0.0-10.0); %Neutrophils 79.4 % (40.0-75.0); Hemoglobin 8.7 g/dL (13.5-17.5); Mean Corpuscular HGB CONC 30.4 g/dL (32.0-36.0); Mean Corpuscular Hemoglobin 29.6 pg (27.0-33.0); Mean Corpuscular Volume 97.3 fl (81.2-95.1); Mean Platelet Volume 11.4 fl (7.4-10.4); Platelet Count 161 10x3/uL (150-450); RBC Distribution Width 17.5 % (11.5-14.5); Red Blood Cell (RBC) Count 2.94 10x6/uL (4.32-5.72); White Blood Cell (WBC) Count 8.9 10x3/uL (3.5-10.5)
[2022-04-07 06:25] LABS: Anion Gap 15 mmol/L (10-20); BUN (Urea Nitrogen) 63 mg/dL (8.4-25.7); Calc. Creatinine Clearance 15 mL/min (70-130); Calcium 9.6 mg/dL (7.8-10.44); Carbon Dioxide 26 mmol/L (23-31); Chloride 107 mmol/L (98-107); Estimated GFR 12; Glucose 106 mg/dL (80-115); Potassium 3.9 mmol/L (3.5-5.1); Sodium 144 mmol/L (136-145)
[2022-04-07] MEDS: Furosemide 40 MG TAB PO SCH ×2 (09:38→17:02)
[2022-04-07] MEDS: hydrALAZINE 25 MG TAB PO SCH ×3 (09:40→22:34)
[2022-04-07] MEDS: Metoprolol Tartrate 50 MG TAB PO SCH ×2 (09:40→22:34)
[2022-04-07] MEDS: Amlodipine 10 MG TAB PO SCH (09:41)
[2022-04-07] MEDS ORDERED: NIFEdipine XL 30 MG TAB PO SCH (11:15)
[2022-04-07] MEDS: NIFEdipine XL 30 MG TAB PO SCH (22:34)
[2022-04-07] MEDS: Atorvastatin Calcium 10 MG TAB PO SCH (22:35)
[2022-04-08 06:12] LABS: #Eosinphils 0.1 10x3/uL (0.0-0.5); #Monocytes 0.7 10x3/uL (0.0-1.1); #Neutrophils 4.7 10x3/uL (1.5-8.4); %Basophils 0.5 % (0.0-2.0); %Eosinophils 1.6 % (0.0-6.0); %Lymphocytes 14.9 % (18.0-47.0); %Monocytes 10.3 % (0.0-10.0); %Neutrophils 72.4 % (40.0-75.0); Hemoglobin 8.3 g/dL (13.5-17.5); Mean Corpuscular HGB CONC 30.9 g/dL (32.0-36.0); Mean Corpuscular Hemoglobin 30.1 pg (27.0-33.0); Mean Corpuscular Volume 97.5 fl (81.2-95.1); Mean Platelet Volume 10.9 fl (7.4-10.4); Platelet Count 165 10x3/uL (150-450); RBC Distribution Width 17.2 % (11.5-14.5); Red Blood Cell (RBC) Count 2.76 10x6/uL (4.32-5.72); White Blood Cell (WBC) Count 6.4 10x3/uL (3.5-10.5)
[2022-04-08 06:23] LABS: Anion Gap 15 mmol/L (10-20); BUN (Urea Nitrogen) 61 mg/dL (8.4-25.7); Calc. Creatinine Clearance 16 mL/min (70-130); Carbon Dioxide 26 mmol/L (23-31); Chloride 106 mmol/L (98-107); Estimated GFR 12; Glucose 111 mg/dL (80-115); Potassium 4.3 mmol/L (3.5-5.1); Sodium 143 mmol/L (136-145)
[2022-04-08] MEDS: NIFEdipine XL 30 MG TAB PO SCH (08:44)
[2022-04-08] MEDS: Metoprolol Tartrate 50 MG TAB PO SCH (08:44)
[2022-04-08] MEDS: Furosemide 40 MG TAB PO SCH ×2 (08:44→13:21)
[2022-04-08] MEDS: hydrALAZINE 25 MG TAB PO SCH (08:45)
[2022-04-08 13:20] VITALS: TEMP 98.9
[2022-04-08 13:48] VITALS: BP 154/81
== END 2022-04-08 16:30 | DRG 682 ==
LOC: CSHERS 09:50 → CSHTELE 16:52 → OBSVTOIN 16:59 → CSHIMCU 19:26 → CSHTELE 19:48 → CSHIMCU 04-04 00:41 → CSHTELE 04-05 13:58
PROVIDERS: ADMIT Family Medicine; ATTEND Student in an Organized Health Care Education/Training Program
PROC: 5A1D70Z Performance of Urinary Filtration, Intermittent, Less than 6 Hours Per Day (ICD-10-PCS; principal; 2022-04-03)
DX: N17.9 Acute kidney failure, unspecified (principal); G93.41 Metabolic encephalopathy; J96.01 Acute respiratory failure with hypoxia; I13.2 Hypertensive heart and chronic kidney disease with heart failure and with stage 5 chronic kidney disease, or end stage renal disease; I69.351 Hemiplegia and hemiparesis following cerebral infarction affecting right dominant side; E87.20 Acidosis, unspecified; Z20.822 Contact with and (suspected) exposure to COVID-19; N18.5 Chronic kidney disease, stage 5; I50.9 Heart failure, unspecified; I16.0 Hypertensive urgency; E11.22 Type 2 diabetes mellitus with diabetic chronic kidney disease; D63.1 Anemia in chronic kidney disease; F01.50 Vascular dementia, unspecified severity, without behavioral disturbance, psychotic disturbance, mood disturbance, and anxiety; F31.9 Bipolar disorder, unspecified; E78.5 Hyperlipidemia, unspecified; Z87.01 Personal history of pneumonia (recurrent); Z88.8 Allergy status to other drugs, medicaments and biological substances; Z79.899 Other long term (current) drug therapy; Z99.3 Dependence on wheelchair
CPT/HCPCS: 36415; 36416; 36600; 71045; 80048; 80053; 82553; 82805; 83880; 84484; 85025; 86704; 87340; 90935; 93005; 94760; 96374; G0257; J0360; J1940; Q4081; U0002

== ENCOUNTER 2022-06-12 09:50 | Inpatient (IN) | payer MEDICARE, OTHER ==
[2022-06-12 10:41] LABS: Bilirubin Neg (Negative); Blood, Urine 10 (Negative); Clarity Clear (Clear); Glucose, Urine (Dipstick) Normal (Negative); Ketone, Urine Negative (Negative); Leukocyte Negative (Negative); Nitrite Negative (Negative); Protein, Urine (Dipstick) 100 mg/dl (Neg-Trace)
[2022-06-12 10:45] LABS: #Monocytes 0.3 10x3/uL (0.0-1.1); #Neutrophils 3.2 10x3/uL (1.5-8.4); %Eosinophils 0.2 % (0.0-6.0); %Lymphocytes 14.9 % (18.0-47.0); %Monocytes 6.3 % (0.0-10.0); %Neutrophils 76.7 % (40.0-75.0); Hemoglobin 5.8 g/dL (13.5-17.5); Mean Corpuscular Hemoglobin 32.6 pg (27.0-33.0); Mean Corpuscular Volume 105.1 fl (81.2-95.1); Mean Platelet Volume 13.4 fl (7.4-10.4); Platelet Count 63 10x3/uL (150-450); RBC Distribution Width 22.4 % (11.5-14.5); Red Blood Cell (RBC) Count 1.78 10x6/uL (4.32-5.72); White Blood Cell (WBC) Count 4.2 10x3/uL (3.5-10.5)
[2022-06-12] MEDS ORDERED: Cefepime 2 GM VIAL ONE (10:47)
[2022-06-12 10:54] LABS: ALT (SGPT) 10 U/L (8-55); AST (SGOT) 15 U/L (5-34); Albumin 3.4 g/dL (3.4-4.8); Alkaline Phosphatase 52 U/L (40-110); Anion Gap 18 mmol/L (10-20); BUN (Urea Nitrogen) 96 mg/dL (8.4-25.7); Bilirubin, Total 1.1 mg/dL (0.2-1.2); CK (CPK) 63 U/L (30-200); Calc. Creatinine Clearance 0 mL/min (70-130); Calcium 9.7 mg/dL (7.8-10.44); Carbon Dioxide 26 mmol/L (23-31); Chloride 108 mmol/L (98-107); Estimated GFR 10; Globulin 2.5 g/dL (2.4-3.5); Glucose 74 mg/dL (80-115); Potassium 4.5 mmol/L (3.5-5.1); Protein, Total 5.9 g/dL (5.8-8.1); Sodium 147 mmol/L (136-145)
[2022-06-12] MEDS ORDERED: Vancomycin 1.5 GRAM/300 ML BAG 1.5 GM in Premix Bag 1 BAG IVPB SCH (11:00)
[2022-06-12 11:04] LABS: Bacteria/HPF None Seen HPF (None Seen); RBC/HPF 0-3 HPF (0-3); Squamous Epithelial None Seen HPF (0-3); WBC/HPF None Seen HPF (0-3)
[2022-06-12 11:16] LABS: CKMB 8.7 ng/mL (0-6.6)
[2022-06-12 11:30] LABS: Anisocytosis MODERATE=16-30 cells (100X) (0-5/hpf); Hypochromia SLIGHT = 6-15 cells (100X) (0-5/hpf); Macrocytosis SLIGHT = 6-15 cells (100X) (0-5/hpf); Polychromasia SLIGHT = 2-3 cells (100X) (0-2/hpf)
[2022-06-12 11:31] LABS: Ovalocytes SLIGHT = 2-5 cells (100X) (0-1/hpf)
[2022-06-12 11:32] LABS: Platelet Morphology Comment Appears Decreased
[2022-06-12 12:03] LABS: SARS-CoV-2 NAA Rapid Test Not Detected (NotDetected)
[2022-06-12] MEDS ORDERED: Acetaminophen 650 MG Suppository PR PRN (13:55)
[2022-06-12] MEDS ORDERED: Acetaminophen 325 MG TAB PO PRN (13:55)
[2022-06-12] MEDS ORDERED: Ondansetron ODT 4 MG TAB PO PRN (13:55)
[2022-06-12] MEDS ORDERED: Ondansetron PF 4 MG/2 ML Vial IVP PRN (13:55)
[2022-06-12] MEDS ORDERED: EPOETIN ALFA-EPBX (ESRD) 10,000 UNIT/ML VIAL SC SCH (18:15)
[2022-06-12] MEDS: Dextrose 5 % And 0.9 % NaCl 1,000 ML IV SCH (18:54)
[2022-06-12 19:00] LABS: Hemoglobin 8.8 g/dL (13.5-17.5)
[2022-06-12] MEDS ORDERED: Vancomycin HCl 1 GM in Sodium Chloride 0.9% 250 ML 300 ML IVPB SCH (21:00)
[2022-06-13] MEDS ORDERED: hydrALAZINE 20 MG/ML VIAL SLOW IVP SCH (01:45)
[2022-06-13 04:18] LABS: Anion Gap 20 mmol/L (10-20); BUN (Urea Nitrogen) 93 mg/dL (8.4-25.7); Calc. Creatinine Clearance 12 mL/min (70-130); Calcium 9.7 mg/dL (7.8-10.44); Carbon Dioxide 22 mmol/L (23-31); Chloride 111 mmol/L (98-107); Estimated GFR 11; Glucose 107 mg/dL (80-115); Potassium 4.3 mmol/L (3.5-5.1); Sodium 149 mmol/L (136-145)
[2022-06-13 04:27] LABS: #Monocytes 0.3 10x3/uL (0.0-1.1); #Neutrophils 4.4 10x3/uL (1.5-8.4); %Basophils 0.2 % (0.0-2.0); %Lymphocytes 9.4 % (18.0-47.0); %Monocytes 5.1 % (0.0-10.0); %Neutrophils 82.1 % (40.0-75.0); Hemoglobin 8.8 g/dL (13.5-17.5); Mean Corpuscular HGB CONC 32.2 g/dL (32.0-36.0); Mean Corpuscular Hemoglobin 31.5 pg (27.0-33.0); Mean Corpuscular Volume 97.8 fl (81.2-95.1); Mean Platelet Volume 12.9 fl (7.4-10.4); Platelet Count 59 10x3/uL (150-450); RBC Distribution Width 21.2 % (11.5-14.5); Red Blood Cell (RBC) Count 2.79 10x6/uL (4.32-5.72); White Blood Cell (WBC) Count 5.3 10x3/uL (3.5-10.5)
[2022-06-13] MEDS ORDERED: Furosemide 40 MG/4 ML VIAL SLOW IVP SCH (08:00)
[2022-06-13] MEDS: Cefepime 1 GM in Sodium Chloride 0.9% 100 ML IVPB SCH (11:49)
[2022-06-13 12:27] LABS: Vancomycin, Random 18.6 ug/mL (See Comment)
[2022-06-13] MEDS ORDERED: Vancomycin Sliding Scale 1 EACH IVPB PRN (12:45)
[2022-06-13] MEDS ORDERED: Vancomycin HCl 750 MG in Sodium Chloride 0.9% 250 ML 250 ML IVPB SCH (18:00)
[2022-06-13] MEDS: Dextrose 5 % And 0.9 % NaCl 1,000 ML IV SCH (19:40)
[2022-06-14 06:30] VITALS: TEMP 97.5
[2022-06-14] MEDS ORDERED: Lantus 1000 UNITS/10 ML VIAL SC SCH ×2 (09:00→21:00)
[2022-06-14 09:05] VITALS: BP 176/95
[2022-06-14] MEDS: Cefepime 1 GM in Sodium Chloride 0.9% 100 ML IVPB SCH (12:31)
== END 2022-06-14 15:26 | disposition hospice, inpatient (51) | DRG 871 ==
LOC: CSHERS 09:50 → CSHTELE 17:07
PROVIDERS: ADMIT Emergency Medicine; ATTEND Internal Medicine
PROC: 30233N1 Transfusion of Nonautologous Red Blood Cells into Peripheral Vein, Percutaneous Approach (ICD-10-PCS; principal; 2022-06-12)
PROC: 3E03329 Introduction of Other Anti-infective into Peripheral Vein, Percutaneous Approach (ICD-10-PCS; 2022-06-12)
DX: A41.9 Sepsis, unspecified organism (principal); I50.23 Acute on chronic systolic (congestive) heart failure; J96.01 Acute respiratory failure with hypoxia; I13.2 Hypertensive heart and chronic kidney disease with heart failure and with stage 5 chronic kidney disease, or end stage renal disease; N18.5 Chronic kidney disease, stage 5; I69.351 Hemiplegia and hemiparesis following cerebral infarction affecting right dominant side; E87.0 Hyperosmolality and hypernatremia; Z66 Do not resuscitate; E11.22 Type 2 diabetes mellitus with diabetic chronic kidney disease; D63.1 Anemia in chronic kidney disease; F03.90 Unspecified dementia, unspecified severity, without behavioral disturbance, psychotic disturbance, mood disturbance, and anxiety; F20.9 Schizophrenia, unspecified; E78.5 Hyperlipidemia, unspecified; Z88.8 Allergy status to other drugs, medicaments and biological substances; Z79.899 Other long term (current) drug therapy; Z20.822 Contact with and (suspected) exposure to COVID-19
CPT/HCPCS: 36415; 36430; 51701; 71045; 80048; 80053; 80202; 81003; 81015; 82550; 82553; 83605; 84145; 84484; 85025; 86850; 86900; 86901; 87040; 87086; 93005; 94760; 96365; 96375; J0360; J0692; J1940; J3370; J3490; J7042; J7050; P9016; Q5105